=== PATIENT | female | born 1975 | race Caucasian/White ===

== ENCOUNTER 2017-06-26 04:21 | Emergency (ER) | payer BC ==
[2017-06-26] MEDS ORDERED: Metoclopramide IV* 5 MG/ML 2 ML VIAL IV ONE (04:37)
[2017-06-26] MEDS ORDERED: Loperamide CAP* 2 MG PO ONE (04:37)
[2017-06-26] MEDS ORDERED: NS 0.9% 1000 ML* 2,000 ML IV ONE (04:37)
[2017-06-26 05:07] LABS: ABS Basophils 0 10^3/ul (0-0.2); ABS Eosinophils 0 10^3/ul (0-0.6); ABS Lymphocytes 1.4 10^3/ul (1.0-4.8); ABS Monocytes 0.4 10^3/ul (0-0.8); ABS Neutrophils 4.4 10^3/ul (1.5-7.7); ABS Nucleated RBC 0 10^3/ul; Eosinophil % 0.5 % (0-6); Hematocrit 38 % (35-47); Hemoglobin 12.1 g/dl (12.0-16.0); Lymphocyte % 22.3 % (25-47); Mean Corpuscular HGB Conc 32 g/dl (31-36); Mean Corpuscular Hemoglobin 23 pg (27-31); Mean Corpuscular Volume 73 fL (80-97); Mean Platelet Volume 9 um3 (7.4-10.4); Nucleated Red Blood Cells % 0.1; Platelet Count 234 10^3/ul (150-450); Red Blood Count 5.21 10^6/ul (4.0-5.4); Red Cell Distribution Width 15 % (10.5-15); White Blood Count 6.2 10^3/ul (3.5-10.8)
[2017-06-26 05:26] LABS: EGFR Non-African American 91.3 (>60)
--- NOTE | 2017-06-26 05:53 | ED ---
Lauren Morris Thomas, scribed for Quinn Pérez MD on 06/26/17 at 0433 . GI/ HPI - HPI Summary HPI Summary: The patient is a 42 year old female presenting to the emergency department status post a single episode of vomiting that occurred about 30 minutes prior to arrival. She complains of nausea, diarrhea (one episode), and abdominal cramping as well. Her son had nausea, vomiting, and diarrhea four days ago. - History of Current Complaint Chief Complaint: EDNauseaVomitDiarrh Time Seen by Provider: 06/26/17 04:30 Stated Complaint: V/D Hx Obtained From: Patient Onset/Duration: Started Minutes Ago - 30, Resolved Timing: Intermittent Severity: Moderate Current Severity: None Pain Intensity: 2 Pain Characteristics: Cramping Associated Signs and Symptoms: Positive: Nausea, Vomiting, Diarrhea. Negative: Fever Aggravating Factor(s): Nothing Alleviating Factor(s): Spontaneous Resolution - Allergy/Home Medications Allergies/Adverse Reactions: Allergies Allergy/AdvReac Type Severity Reaction Status Date / Time No Known Allergies Allergy Verified 06/26/17 04:28 PMH/Surg Hx/FS Hx/Imm Hx Previously Healthy: Yes Opthamlomology History: Denies: Hx Legally Blind EENT History: Denies: Hx Deafness - Surgical History Surgery Procedure, Year, and Place: None Infectious Disease History: No Infectious Disease History: Denies: Traveled Outside the [place] in Last 30 Days - Family History Known Family History: Negative: Diabetes - Social History Lives: With Family Alcohol Use: None Hx Substance Use: No Substance Use Type: Reports: None Hx Tobacco Use: No Smoking Status (MU): Never Smoked Tobacco Review of Systems Negative: Fever Positive: Vomiting, Diarrhea, Nausea, Other - abdominal cramping All Other Systems Reviewed And Are Negative: Yes Physical Exam - Summary Physical Exam Summary: VITAL SIGNS: Reviewed. GENERAL: Patient is a well-developed and nourished female who is lying comfortable in the stretcher. Patient is not in any acute respiratory distress. HEAD AND FACE: No signs of trauma. No ecchymosis, hematomas or skull depressions. No sinus tenderness. EYES: PERRLA, EOMI x 2, No injected conjunctiva, no nystagmus. EARS: Hearing grossly intact. Ear canals and tympanic membranes are within normal limits. MOUTH: Oropharynx within normal limits. NECK: Supple, trachea is midline, no adenopathy, no JVD, no carotid bruit, no c- spine tenderness, neck with full ROM. CHEST: Symmetric, no tenderness at palpation LUNGS: Clear to auscultation bilaterally. No wheezing or crackles. CVS: Regular rate and rhythm, S1 and S2 present, no murmurs or gallops appreciated. ABDOMEN: Soft, non-tender. No signs of distention. No rebound no guarding, and no masses palpated. She has hyperactive bowel sounds. EXTREMITIES: FROM in all major joints, no edema, no cyanosis or clubbing. NEURO: Alert and oriented x 3. No acute neurological deficits. Speech is normal and follows commands. SKIN: Dry and warm Triage Information Reviewed: Yes Vital Signs On Initial Exam: Initial Vitals Temp Pulse Resp BP Pulse Ox 98.3 F 72 16 102/69 98 06/26/17 04:24 06/26/17 04:24 06/26/17 04:24 06/26/17 04:24 06/26/17 04:24 Vital Signs Reviewed: Yes Diagnostics - Vital Signs Vital Signs Temp Pulse Resp BP Pulse Ox 06/26/17 04:24 98.3 F 72 16 102/69 98 - Laboratory Result Diagrams: 06/26/17 04:55 06/26/17 04:55 Lab Statement: Any lab studies that have been ordered have been reviewed, and results considered in the medical decision making process. GIGU Course/Dx - Course Assessment/Plan: The patient is a 42 year old female presenting to the emergency department status post a single episode of vomiting that occurred about 30 minutes prior to arrival. She complains of nausea, diarrhea (one episode), and abdominal cramping as well. Her son had nausea, vomiting, and diarrhea four days ago. In the ED course the patient was given IV fluids, Reglan , and Imodium. Bloodwork was obtained. The patient is diagnosed with acute gastroenteritis. The patient is instructed to follow up with primary care. The patient is prescribed Reglan. - Diagnoses Provider Diagnoses: Acute gastroenteritis Discharge - Discharge Plan Condition: Stable Disposition: HOME Prescriptions: Metoclopramide TAB* [Reglan TAB*] 10 mg PO Q6H PRN #14 tab PRN Reason: Nausea/Vomiting Patient Education Materials: Gastroenteritis (ED) Referrals: [facility] [Outside] - 3 Days Additional Instructions: Follow up with your primary care physician in three days. Return to the emergency department for any new or worsening symptoms. The documentation as recorded by the Lauren leon Thomas accurately reflects the service I personally performed and the decisions made by , Quinn Pérez MD.
[2017-06-26 06:03] VITALS: BP 108/66
== END 2017-06-26 06:01 | disposition home or self-care (01) ==
LOC: ED 04:21
DX: K52.9 Noninfective gastroenteritis and colitis, unspecified (principal)
CPT/HCPCS: 36415; 80053; 82140; 82150; 84702; 85025; 86140; 96360; 96374; 99284; A9270-GY; J2765